=== PATIENT | female | born 1955 | race Caucasian/White ===

== ENCOUNTER 2020-03-11 08:45 | Observation (INO) ==
[2020-03-11] MEDS ORDERED: Nitroglycerin 1 INCH/GM PACKET TP ONE (09:26)
[2020-03-11 09:39] LABS: Basophils % 0.5 %; Eosinophils # 0.1 K/mcL (0.0-0.6); Eosinophils % 2.5 %; Hematocrit 32.5 % (35.3-44.9); Hemoglobin 10.6 g/dL (11.5-15.4); Immature Granulocytes % 0.7 % (0-4); Lymphocytes % 18.5 %; Mean Corpuscular HGB Conc 32.6 g/dL (31.6-35.5); Mean Corpuscular Hemoglobin 26.4 pg (28.0-33.3); Mean Corpuscular Volume 80.8 fL (83.0-100.0); Mean Platelet Volume 9.8 fL (9.4-12.4); Monocytes # 0.5 K/mcL (0.0-1.3); Monocytes % 8.5 %; Neutrophils # 3.9 K/mcL (1.6-8.9); Platelet Count 275 K/mcL (140-400); Red Blood Count 4.02 M/mcL (3.82-4.97); Red Cell Distribution Width 18.6 % (11.5-14.5); Segmented Neutrophils % 69.3 %; White Blood Count 5.6 K/mcL (4.3-11.1)
[2020-03-11 09:41] LABS: Prothrombin Time 11.9 Seconds (9.4-12.1)
[2020-03-11 09:46] LABS: Activated Partial Thrombo Time 30.4 Seconds (26.0-36.0)
[2020-03-11] MEDS ORDERED: Isovue-370 500 ML BOTTLE IVP ONE (09:49)
[2020-03-11 09:52] LABS: Alanine Aminotransferase 12 Units/L (7-52); Albumin/Globulin Ratio 1.3 (1.1-2.2); Alkaline Phosphatase 74 Units/L (34-104); Aspartate Amino Transferase 14 Units/L (13-39); BUN/Creatinine Ratio 21 (6-26); Bilirubin,Total 0.5 mg/dL (0.3-1.0); Blood Urea Nitrogen 21 mg/dL (8-23); Carbon Dioxide 27 mEq/L (23-29); Chloride 103 mEq/L (98-107); Globulin 3.2 g/dL (2.4-3.5); Glucose 103 mg/dL (70-105); Magnesium 1.5 mg/dL (1.6-2.6); Osmolality,Calculated 293 (280-300); Phosphorous 3.3 mg/dL (2.7-4.5); Potassium 3.8 mEq/L (3.5-5.1); Sodium 140 mEq/L (136-145); Total Protein 7.2 g/dL (6.4-8.9); eGFR For African Americans > 60 (> 60); eGFR For Non-African Americans 56 (> 60)
[2020-03-11 10:19] LABS: Bilirubin,Urine Negative (Negative); Blood,Urine Negative (Negative); Clarity,Urine Slightly Cloudy (Clear); Color,Urine Yellow (Yellow); Glucose,Urine (UA) Normal (Normal); Ketones,Urine Negative (Negative); Leukocyte Esterase,Urine Moderate (Negative); Nitrite,Urine Negative (Negative); Protein,Urine Negative (Neg-Trace); Urobilinogen,Urine Normal (Normal)
[2020-03-11 10:42] LABS: Bacteria,Urine Moderate per hpf (None-Few); Hyaline Casts,Urine Few per lpf (None Seen); Mucus,Urine Few per lpf (None-Few); Squamous Epithelial Cell,Urine Few per hpf (None-Few); WBC,Urine 15-30 per hpf (0-3)
[2020-03-11] MEDS ORDERED: MOM Conc 10 ML UD.LIQ PO PRN (13:51)
[2020-03-11] MEDS ORDERED: *HR* Dextrose 50 % in Water (Vial) 50 ML VIAL IVP PRN (13:51)
[2020-03-11] MEDS ORDERED: Naloxone 0.4 MG/ML INJ IVP PRN (13:51)
[2020-03-11] MEDS ORDERED: D5% in Water 1,000 ML IVC PRN (13:51)
[2020-03-11] MEDS ORDERED: Dextrose Gel 15 GM/37.5 ML TUBE PO PRN ×2 (13:51)
[2020-03-11] MEDS ORDERED: Mag Hydrox/Al Hydrox/Simeth 30 ML UDC PO PRN (13:51)
[2020-03-11] MEDS ORDERED: Ondansetron 4 MG/2 ML VIAL IVP PRN (13:51)
[2020-03-11] MEDS ORDERED: Aspirin 325 MG TABLET PO ONE (14:01)
[2020-03-11] MEDS ORDERED: Nitroglycerin 0.4 MG TAB.SUBL SL PRN (14:01)
[2020-03-11] MEDS ORDERED: cefTRIAXone 2,000 MG in 0.9 % Sodium Chloride Mini Bag 100 ML IVPB SCH (15:00)
[2020-03-11] MEDS: Gabapentin 300 MG CAPSULE PO SCH ×2 (15:18→19:50)
[2020-03-11] MEDS: Acetaminophen 325 MG TABLET PO PRN (15:21)
[2020-03-11] MEDS: Insulin LISPRO 300 UNITS/3 ML VIAL SUBQ SCH ×2 (16:56→19:50)
[2020-03-11] MEDS: cefTRIAXone 2,000 MG in 0.9 % Sodium Chloride Mini Bag 100 ML IVPB SCH (16:57)
[2020-03-11] MEDS: carvediloL 6.25 MG TABLET PO SCH (16:58)
[2020-03-11] MEDS: Budesonide/Formoterol 160/4.5 1 PUFF INH IH SCH (21:04)
[2020-03-12] MEDS: Acetaminophen 325 MG TABLET PO PRN (05:36)
[2020-03-12] MEDS: Levothyroxine 25 MCG TABLET PO SCH (05:39)
[2020-03-12 06:45] LABS: Basophils % 0.3 %; Eosinophils # 0.1 K/mcL (0.0-0.6); Hematocrit 30.9 % (35.3-44.9); Hemoglobin 9.5 g/dL (11.5-15.4); Immature Granulocytes % 0.5 % (0-4); Lymphocytes % 17.4 %; Mean Corpuscular HGB Conc 30.7 g/dL (31.6-35.5); Mean Corpuscular Hemoglobin 25.1 pg (28.0-33.3); Mean Corpuscular Volume 81.7 fL (83.0-100.0); Mean Platelet Volume 10.2 fL (9.4-12.4); Monocytes # 0.5 K/mcL (0.0-1.3); Neutrophils # 4.2 K/mcL (1.6-8.9); Platelet Count 257 K/mcL (140-400); Red Blood Count 3.78 M/mcL (3.82-4.97); Red Cell Distribution Width 18.7 % (11.5-14.5); Segmented Neutrophils % 70.8 %
[2020-03-12 07:13] LABS: BUN/Creatinine Ratio 21 (6-26); Blood Urea Nitrogen 18 mg/dL (8-23); Calcium 8.9 mg/dL (8.6-10.3); Carbon Dioxide 28 mEq/L (23-29); Chloride 105 mEq/L (98-107); Chol/HDL Ratio 2.9 (0-4.9); Cholesterol 132 mg/dL (< 200); Glucose 98 mg/dL (70-105); HDL Cholesterol 45 mg/dL (40-59); LDL Cholesterol,Calculated 64 mg/dL (< 100); Osmolality,Calculated 294 (280-300); Potassium 3.8 mEq/L (3.5-5.1); Sodium 141 mEq/L (136-145); Triglycerides 116 mg/dL (< 150); eGFR For African Americans > 60 (> 60); eGFR For Non-African Americans > 60 (> 60)
[2020-03-12] MEDS: Insulin LISPRO 300 UNITS/3 ML VIAL SUBQ SCH ×4 (07:58→19:44)
[2020-03-12] MEDS: Budesonide/Formoterol 160/4.5 1 PUFF INH IH SCH ×2 (08:26→21:03)
[2020-03-12] MEDS: Aspirin 81 MG TAB.CHEW PO SCH (09:12)
[2020-03-12] MEDS: carvediloL 6.25 MG TABLET PO SCH ×2 (09:12→16:19)
[2020-03-12] MEDS: Gabapentin 300 MG CAPSULE PO SCH ×3 (09:12→21:30)
[2020-03-12] MEDS: amLODIPine 5 MG TABLET PO SCH (09:12)
[2020-03-12] MEDS ORDERED: *HR* LORazepam 0.5 MG TABLET PO PRN (13:13)
[2020-03-12] MEDS: cefTRIAXone 2,000 MG in 0.9 % Sodium Chloride Mini Bag 100 ML IVPB SCH (16:14)
[2020-03-13] MEDS: Levothyroxine 25 MCG TABLET PO SCH (06:21)
[2020-03-13] MEDS: Acetaminophen 325 MG TABLET PO PRN (06:23)
[2020-03-13] MEDS: Insulin LISPRO 300 UNITS/3 ML VIAL SUBQ SCH ×4 (07:01→21:19)
[2020-03-13] MEDS: Budesonide/Formoterol 160/4.5 1 PUFF INH IH SCH ×2 (08:16→22:17)
[2020-03-13] MEDS: amLODIPine 5 MG TABLET PO SCH (09:22)
[2020-03-13] MEDS: Gabapentin 300 MG CAPSULE PO SCH ×3 (09:22→21:19)
[2020-03-13] MEDS: carvediloL 6.25 MG TABLET PO SCH ×2 (09:22→17:03)
[2020-03-13] MEDS: Aspirin 81 MG TAB.CHEW PO SCH (09:22)
[2020-03-13] MEDS: cefTRIAXone 2,000 MG in 0.9 % Sodium Chloride Mini Bag 100 ML IVPB SCH (15:14)
[2020-03-14] MEDS: Levothyroxine 25 MCG TABLET PO SCH (06:03)
[2020-03-14 07:20] LABS: Basophils # 0.1 K/mcL (0.0-0.2); Basophils % 0.8 %; Eosinophils # 0.1 K/mcL (0.0-0.6); Eosinophils % 2.2 %; Hematocrit 31.6 % (35.3-44.9); Hemoglobin 9.3 g/dL (11.5-15.4); Immature Granulocytes % 0.5 % (0-4); Lymphocytes # 1.1 K/mcL (0.6-4.6); Lymphocytes % 16.8 %; Mean Corpuscular HGB Conc 29.4 g/dL (31.6-35.5); Mean Corpuscular Hemoglobin 24.7 pg (28.0-33.3); Mean Corpuscular Volume 83.8 fL (83.0-100.0); Mean Platelet Volume 10.3 fL (9.4-12.4); Monocytes # 0.7 K/mcL (0.0-1.3); Monocytes % 11.1 %; Neutrophils # 4.4 K/mcL (1.6-8.9); Platelet Count 273 K/mcL (140-400); Red Blood Count 3.77 M/mcL (3.82-4.97); Red Cell Distribution Width 18.8 % (11.5-14.5); Segmented Neutrophils % 68.6 %; White Blood Count 6.4 K/mcL (4.3-11.1)
[2020-03-14 07:26] VITALS: BP 122/76
[2020-03-14 07:33] LABS: BUN/Creatinine Ratio 22 (6-26); Blood Urea Nitrogen 22 mg/dL (8-23); Calcium 8.9 mg/dL (8.6-10.3); Carbon Dioxide 30 mEq/L (23-29); Chloride 104 mEq/L (98-107); Glucose 105 mg/dL (70-105); Osmolality,Calculated 292 (280-300); Potassium 4.9 mEq/L (3.5-5.1); Sodium 139 mEq/L (136-145); eGFR For African Americans > 60 (> 60); eGFR For Non-African Americans 56 (> 60)
[2020-03-14] MEDS: Insulin LISPRO 300 UNITS/3 ML VIAL SUBQ SCH ×2 (07:51→11:31)
[2020-03-14] MEDS: Budesonide/Formoterol 160/4.5 1 PUFF INH IH SCH (07:54)
[2020-03-14] MEDS: Gabapentin 300 MG CAPSULE PO SCH (08:23)
[2020-03-14] MEDS: Aspirin 81 MG TAB.CHEW PO SCH (08:23)
[2020-03-14] MEDS: amLODIPine 5 MG TABLET PO SCH (08:23)
[2020-03-14] MEDS: carvediloL 6.25 MG TABLET PO SCH (08:23)
== END 2020-03-14 12:18 | disposition home or self-care (01) ==
LOC: EMEROOPIK 08:45 → INPPIK 08:45
PROVIDERS: ADMIT Family Medicine; ATTEND Family Medicine